=== PATIENT | male | born 1975 | race Caucasian/White ===

== ENCOUNTER → 2016-09-20 | Day surgery (SDC) | payer OTHER ==
[2016-09-13 13:56] VITALS: Ht 182.9 cm; Wt 99.1 kg
[~2016-09-20] VITALS: Ht 182.9 cm; Wt 99.1 kg
[~2016-09-20] MED LIST: AMIT25TA9 PO; GABA300C19 PO; LIDOCAINE HCL 1% MPF 5 ML VIAL ONE; MULT-506 PO; PRED20TA2 PO; SODIUM CHLORIDE 0.9% INJ 10 ML VIAL ONE
--- NOTE | 2016-09-20 13:33 | History & Physical Bridge - [place] ---
H&P Re-Evaluation Bridge Note: I have examined the patient, reviewed the History & Physical and in the interval since the performance of the History & Physical I have noted the following changes of clinical significance: No changes noted
[2016-09-20 13:58] VITALS: TEMP 37.3
--- NOTE | 2016-09-20 14:01 | Discharge Instructions ---
Discharge Instructions Visit Reason for Visit: Sacral Or Sacrococcygeal Radiculopathy Discharge Discharge Diagnosis / Problem: left leg pain Discharge Goals Goal(s): Decrease discomfort, Improve function Activity Recommendations Activity Limitations: resume your previous activity Anesthesia . Post Anesthesia Instructions: If you have had General Anesthesia or IV Sedation: * Do not drive today. * Resume driving when surgeon permits. * Do not make important decisions or sign legal documents today. * Call surgeon for: 1. Temperature elevations greater than 101 degrees F. 2. Uncontrollable pain. 3. Excessive bleeding. 4. Persistent nausea and vomiting. 5. Medication intolerance (nausea, vomiting or rash). * For nausea and vomiting use only clear liquids such as: tea, soda, bouillon until nausea subsides, then gradually increase diet as tolerated. * If you have any concerns or questions, call your surgeon's office. If physician is unavailable and it is an emergency, call 911 or go to the nearest emergency room. . Diet Recommendations Recommended Home Diet: resume previous diet Procedures Procedures Performed: CAUDAL EPIDURAL STEROID INJECTION. Pending Studies Studies pending at discharge: no Medical Emergencies . Who to Call and When: Medical Emergencies: If at any time you feel your situation is an emergency, please call 911 immediately. . Non-Emergent Contact Non-Emergency issues call your: Specialist . . "Provider Documentation" section prepared by Ludwig De Leon.
[2016-09-20 14:07] VITALS: BP 110/72; PULSE 95; O2SAT 95
--- NOTE | 2016-09-20 14:34 | OPERATIVE REPORT ---
DATE OF OPERATION: 09/20/2016 PREOPERATIVE DIAGNOSES: Failed back syndrome, left sacral radiculopathy, history of L5-S1 fusion with persistent left S1 radiculopathy. POSTOPERATIVE DIAGNOSES: Same. PROCEDURE: Caudal epidural steroid injection under fluoroscopic guidance. INDICATIONS: The patient is a 41-year-old white male who underwent an epidural injection and had good benefit following the injection for a number of weeks. A lot of that has worn off, but he still has about 20% overall improvement in radicular leg pain and presents today for second injection to try to stack the effects. PHYSICAL EXAMINATION: GENERAL: Pleasant male seated comfortably. MUSCULOSKELETAL: Lumbar paraspinal muscles were nontender. He had normal lower extremity strength with sensation and negative seated straight leg raises. CONSENT: Verbal and written consent was obtained from the patient. Risks and benefits were reviewed. Risks include but are not limited to epidural abscess, epidural hematoma, allergic reaction, dural puncture. The patient wishes to proceed. DESCRIPTION OF PROCEDURE: The patient was taken back to the special procedures room of the [facility] where he was maintained in a prone position. Backside was cleansed with Betadine x3 and a dry sterile dressing was applied. Fluoroscope was used to identify. The sacral hiatus and the overlying skin was anesthetized with 4 mL of lidocaine 1% with a 25 gauge 1.5-inch needle. A 25 gauge 3.5 inch spinal needle was then directed into the sacral hiatus and advanced upwards of an inch into the canal. He then underwent injection after negative aspiration of 40 mg of Depo-Medrol and 5 mL of preservative-free sodium chloride. Injection was tolerated, but was noted for an increased pressure in and around this area which was transient. DISPOSITION: 1. The patient is taken out into the discharge recovery area where he will be discharged home once discharge criteria have been met. 2. Follow up in the [facility] office in 2-4 weeks. I attest to the content of the Intraoperative Record and any orders documented therein. Any exceptio ns are noted below.
== END | disposition home or self-care (01) ==
LOC: X.SURG 12:51
PROVIDERS: ATTEND Physical Medicine & Rehabilitation
DX: M54.16 Radiculopathy, lumbar region (principal); M96.1 Postlaminectomy syndrome, not elsewhere classified; Z98.1 Arthrodesis status

== ENCOUNTER → 2016-11-21 | Day surgery (SDC) | payer OTHER ==
[2016-11-02 12:58] VITALS: Ht 182.9 cm; Wt 99.1 kg
[~2016-11-21] VITALS: Ht 182.9 cm; Wt 99.1 kg
[~2016-11-21] MED LIST changes: +BUPIVACAINE 0.25% 2.5MG/ML PF 10 ML VIAL INFIL ONE; +IOPAMIDOL INJ 61% 15 ML VIAL ONE; -SODIUM CHLORIDE 0.9% INJ 10 ML VIAL ONE
[2016-11-21 14:24] VITALS: TEMP 37.3
--- NOTE | 2016-11-21 14:29 | Discharge Instructions ---
Discharge Instructions Date of Service Nov 21, 2016. Visit Reason for Visit: Sacroiliitis Discharge Discharge Diagnosis / Problem: low back pain Discharge Goals Goal(s): Decrease discomfort, Improve function Activity Recommendations Activity Limitations: resume your previous activity Anesthesia . Post Anesthesia Instructions: If you have had General Anesthesia or IV Sedation: * Do not drive today. * Resume driving when surgeon permits. * Do not make important decisions or sign legal documents today. * Call surgeon for: 1. Temperature elevations greater than 101 degrees F. 2. Uncontrollable pain. 3. Excessive bleeding. 4. Persistent nausea and vomiting. 5. Medication intolerance (nausea, vomiting or rash). * For nausea and vomiting use only clear liquids such as: tea, soda, bouillon until nausea subsides, then gradually increase diet as tolerated. * If you have any concerns or questions, call your surgeon's office. If physician is unavailable and it is an emergency, call 911 or go to the nearest emergency room. . Diet Recommendations Recommended Home Diet: resume previous diet Procedures Procedures Performed: LEFT SACROPILIAC JOINT INJECTION Pending Studies Studies pending at discharge: no Medical Emergencies . Who to Call and When: Medical Emergencies: If at any time you feel your situation is an emergency, please call 911 immediately. . Non-Emergent Contact Non-Emergency issues call your: Specialist . . "Provider Documentation" section prepared by Ludwig De Leon.
[2016-11-21 14:36] VITALS: BP 125/88; PULSE 72; O2SAT 95
--- NOTE | 2016-11-21 15:58 | OPERATIVE REPORT ---
DATE OF OPERATION: 11/21/2016 PREOPERATIVE DIAGNOSES: Left sacroiliitis and history of a lumbar fusion. POSTOPERATIVE DIAGNOSES: Same. PROCEDURE: Left sacroiliac joint injection under fluoroscopic guidance. INDICATIONS: The patient is a 41-year-old white male who presents today with chronic low back pain. Pain is really localized to the sacroiliac joint. He has had responses to an epidural injection to deal with radicular pain. He reports that this pain will radiate towards the groin on the left side and in the sacroiliac region. He presents today for an SI joint injection that provide him with therapeutic relief. PHYSICAL EXAMINATION: Pleasant male seated comfortably, in no apparent distress. He has point tenderness to palpation of his left SI joint. Sciatic notch was minimally tender. Pain was worse with extension. Normal lower extremity strength. Negative seated straight leg raises. CONSENT: Verbal and written consent was obtained from the patient. Risks and benefits were reviewed. Risks include, but are not limited to abscess and allergic reaction. The patient wishes to proceed. DESCRIPTION OF PROCEDURE: The patient was taken back to the special procedures room of the [facility], where he was maintained in a prone position. Backside was cleansed with Betadine x3 and a dry sterile dressing was applied. Fluoroscope was used to identify the left SI joint. The overlying skin was anesthetized with 3 mL of lidocaine 1% with a 25-gauge 1.5-inch needle. A 25-gauge 3.5-inch spinal needle was then directed under fluoroscopic guidance into the joint. There was a give as it entered the joint. Isovue-300 contrast 0.25 mL demonstrated intraarticular uptake. He then underwent injection after negative aspiration of 40 mg of Depo-Medrol and 1.5 mL of bupivacaine 0.25%. Injection was well tolerated. DISPOSITION: 1. The patient is taken out into the discharge recovery area where he will be discharged home once discharge criteria have been met. 2. Follow up in the [facility] office in 2-4 weeks. I attest to the content of the Intraoperative Record and any orders documented therein. Any exceptio ns are noted below.
== END | disposition home or self-care (01) ==
LOC: X.SURG 13:13
PROVIDERS: ATTEND Physical Medicine & Rehabilitation
DX: M46.1 Sacroiliitis, not elsewhere classified (principal)

== ENCOUNTER → 2017-03-08 | Day surgery (SDC) | payer OTHER ==
[2017-02-05 07:36] VITALS: Ht 182.9 cm; Wt 99.1 kg
[~2017-03-08] VITALS: Ht 182.9 cm; Wt 99.1 kg
[~2017-03-08] MED LIST changes: +ATROPINE SULFATE 0.1 MG/ML 5ML SYR IV PRN; -BUPIVACAINE 0.25% 2.5MG/ML PF 10 ML VIAL INFIL ONE; +BUPIVACAINE 0.25% 2.5MG/ML PF 10 ML VIAL ONE; +EpHEDrine SULFATE INJ 50 MG/ML AMP IV PRN; +FENTANYL CITRATE INJ 50 MCG/1 ML 2 ML VIAL IV PRN; +LACTATED RINGER'S 1000ML 1,000 ML IV SCH; +LIDOCAINE HCL 2% 2 ML VIAL (20MG/ML) ONE; +MIDAZOLAM HCL 1 MG/ML 2ML VIAL ONE; +ONDANSETRON INJ 2 MG/ML 2 ML VIAL IV PRN; -PRED20TA2 PO; +PROMETHAZINE HCL INJ 6.25 MG in SODIUM CHLORIDE 0.9% 50ML 50 ML IV PRN; +PROPOFOL IV EMULSION 10 MG/ML 20 ML VIAL IV ONE; +[UNRECOGNIZED DRUG - REMARK] SCH
[2017-03-08] MEDS: LIDOCAINE MPF 1% INJ 30 ML SDV (L&D) INFIL ONE ×2 (10:32→11:03)
[2017-03-08 11:09] VITALS: TEMP 36.5
--- NOTE | 2017-03-08 11:17 | Discharge Instructions ---
Discharge Instructions Date of Service Mar 08, 2017. Visit Reason for Visit: Sacroiliitis Discharge Discharge Diagnosis / Problem: low back pain Discharge Goals Goal(s): Decrease discomfort, Improve function Activity Recommendations Activity Limitations: resume your previous activity Anesthesia . Post Anesthesia Instructions: If you have had General Anesthesia or IV Sedation: * Do not drive today. * Resume driving when surgeon permits. * Do not make important decisions or sign legal documents today. * Call surgeon for: 1. Temperature elevations greater than 101 degrees F. 2. Uncontrollable pain. 3. Excessive bleeding. 4. Persistent nausea and vomiting. 5. Medication intolerance (nausea, vomiting or rash). * For nausea and vomiting use only clear liquids such as: tea, soda, bouillon until nausea subsides, then gradually increase diet as tolerated. * If you have any concerns or questions, call your surgeon's office. If physician is unavailable and it is an emergency, call 911 or go to the nearest emergency room. . Diet Recommendations Recommended Home Diet: resume previous diet Procedures Procedures Performed: Left Cooled Sacroiliac Joint Denervaton Pending Studies Studies pending at discharge: no Medical Emergencies . Who to Call and When: Medical Emergencies: If at any time you feel your situation is an emergency, please call 911 immediately. . Non-Emergent Contact Non-Emergency issues call your: Specialist . . "Provider Documentation" section prepared by Ludwig De Leon. .
--- NOTE | 2017-03-08 11:25 | [facility] Operative Report ---
Operative Report Date of Service Mar 08, 2017. Operative Report DATE OF SURGERY: 03/08/17. DATE OF OPERATION: 03/08/2017 PREOPERATIVE DIAGNOSIS: Left sacroiliitis, history of a lumbar fusion L5 through S1. POSTOPERATIVE DIAGNOSIS: Same. PROCEDURE: Left sacroiliac joint cooled denervation procedure under fluoroscopic guidance. SURGEON: Dr. Ludwig De Leon. INDICATIONS: The patient is a 41-year-old white male who receives sacroiliac joint injections with some success. He presents today for a denervation procedure to provide him with relief of right-sided sacroiliac pain. PHYSICAL EXAMINATION: Pleasant male seated comfortably. He has point tenderness to palpation of his left SI joint. This is exacerbated with extension. He has normal motor and sensory examination with negative seated straight leg raises. CONSENT: Verbal and written consent was obtained from the patient and risks include but are not limited to abscess, allergic reaction, denervation. She wishes to proceed. PROCEDURE: The patient was taken back to the special procedures room of [facility]. He was maintained in a prone position. Backside was cleansed with Betadine x3 and a dry sterile dressing was applied. Fluoroscope was used to identify the right sacroiliac joint. It was actually done in an oblique fashion to deal with the artifact of the fusion. She had conscious sedation throughout the procedure and was comfortable, was able to converse freely. Overlying skin of this S1 foramen was done with 3 mL of 1% lidocaine. A denervation needle was then placed contacting the right sacral ala. A total of 8 sites were done. The right sacral ala, the superior lateral aspect of S1, the lateral aspect of S1, the inferior lateral aspect of S1, the superior lateral aspect of S2, the lateral aspect of S2, the lateral inferior aspect of S2 and the superior lateral aspect of S3. These were all denervated 2 minutes and 30 seconds with cooled denervation well tolerated. Additional anesthetization was done on the last 2 as they were too inferior to be reached with the single needle as it was changed out during denervation 7 and 8. DISPOSITION: 1. The patient is taken out into the discharge recovery area where she will be discharged home once discharge criteria have been met. 2. Follow up in the [facility] office in 2-4 weeks. I attest to the content of the Intraoperative Record and any orders documented therein. Any exceptions are noted below. I attest to the content of the Intraoperative Record and any orders documented therein. Any exceptions are noted below.
[2017-03-08 11:51] VITALS: BP 123/72; PULSE 68; O2SAT 96
--- NOTE | 2017-03-08 11:51 | Anesthesiology Progress Note ---
Anesthesia Post Op Note Date & Time Mar 08, 2017 at 11:51 Vital Signs Pain Intensity: 10 Vital Signs Past 12 Hours Date Time Temp Pulse Resp B/P (MAP) Pulse Ox O2 Delivery O2 Flow Rate FiO2 03/08/17 11:09 36.5 68 18 119/78 (92) 97 Room Air 03/08/17 09:42 36.8 86 16 126/76 (93) 98 Room Air Notes Mental Status: alert / awake / arousable, participated in evaluation Pt Amnestic to Procedure: Yes Nausea / Vomiting: adequately controlled Pain: adequately controlled Airway Patency, RR, SpO2: stable & adequate BP & HR: stable & adequate Hydration State: stable & adequate Anesthetic Complications: no major complications apparent
== END | disposition home or self-care (01) ==
LOC: X.SURG 09:07
PROVIDERS: ATTEND Physical Medicine & Rehabilitation
DX: M46.1 Sacroiliitis, not elsewhere classified (principal)

== ENCOUNTER → 2017-10-25 | Outpatient (CLI) | payer OTHER ==
[~2017-10-25] MED LIST changes: -ATROPINE SULFATE 0.1 MG/ML 5ML SYR IV PRN; -BUPIVACAINE 0.25% 2.5MG/ML PF 10 ML VIAL ONE; -EpHEDrine SULFATE INJ 50 MG/ML AMP IV PRN; -FENTANYL CITRATE INJ 50 MCG/1 ML 2 ML VIAL IV PRN; +GABA-1218 PO; -GABA300C19 PO; -IOPAMIDOL INJ 61% 15 ML VIAL ONE; -LACTATED RINGER'S 1000ML 1,000 ML IV SCH; -LIDOCAINE HCL 1% MPF 5 ML VIAL ONE; -LIDOCAINE HCL 2% 2 ML VIAL (20MG/ML) ONE; -MIDAZOLAM HCL 1 MG/ML 2ML VIAL ONE; -ONDANSETRON INJ 2 MG/ML 2 ML VIAL IV PRN; -PROMETHAZINE HCL INJ 6.25 MG in SODIUM CHLORIDE 0.9% 50ML 50 ML IV PRN; -PROPOFOL IV EMULSION 10 MG/ML 20 ML VIAL IV ONE; -[UNRECOGNIZED DRUG - REMARK] SCH
== END | disposition home or self-care (01) ==
LOC: C.RDSM 13:00
PROVIDERS: ATTEND Orthopaedic Surgery
DX: R52 Pain, unspecified (principal)

== ENCOUNTER → 2018-01-01 | Day surgery (SDC) | payer OTHER ==
[2017-11-07 13:16] VITALS: Ht 182.9 cm; Wt 95.5 kg
[~2018-01-01] VITALS: Ht 182.9 cm; Wt 95.5 kg
[~2018-01-01] MED LIST changes: +APPLE CIDER VINEGAR PO; +ATROPINE SULFATE 0.1 MG/ML 5ML SYR IV PRN; +BUPIVACAINE 0.25% 2.5MG/ML PF 10 ML VIAL ONE; +DULO-24 PO; +EpHEDrine SULFATE INJ 50 MG/ML AMP IV PRN; +FENTANYL CITRATE INJ 50 MCG/1 ML 2 ML VIAL IV PRN; +FENTANYL CITRATE INJ 50 MCG/1 ML 2 ML VIAL ONE; -GABA-1218 PO; +GABA100C13 PO; +GABA400C PO; +LACTATED RINGER'S 1000ML 1,000 ML IV SCH; +LIDOCAINE HCL 1% 20 ML VIAL ONE; +LIDOCAINE HCL 2% 2 ML VIAL (20MG/ML) ONE; +MIDAZOLAM HCL 1 MG/ML 2ML VIAL ONE; +ONDANSETRON INJ 2 MG/ML 2 ML VIAL IV PRN; +ONDANSETRON INJ 2 MG/ML 2 ML VIAL ONE; +PROPOFOL IV EMULSION 10 MG/ML 20 ML VIAL ONE
--- NOTE | 2018-01-01 08:53 | [facility] Post Operative Brief Note ---
Immediate Operative Summary Operative Date January 01, 2018. Pre-Operative Diagnosis Sacrolitis Post-Operative Diagnosis Same as pre-op Procedure(s) Performed Left Sacroiliac Joint Cooled Radio Frequency Ablation Surgeon Consulting Hr Professional Surgeon(s) None Estimated Blood Loss Zero Findings Consistent with Post-Op Diagnosis Specimens None Drains None Anesthesia Type MAC Complication(s) none Disposition Disposition:
--- NOTE | 2018-01-01 08:54 | Discharge Instructions ---
Discharge Instructions Date of Service January 01, 2018. Visit Reason for Visit: Sacroiliitis Discharge Discharge Diagnosis / Problem: low back pain Discharge Goals Goal(s): Decrease discomfort, Improve function Activity Recommendations Activity Limitations: resume your previous activity Anesthesia . Post Anesthesia Instructions: If you have had General Anesthesia or IV Sedation: * Do not drive today. * Resume driving when surgeon permits. * Do not make important decisions or sign legal documents today. * Call surgeon for: 1. Temperature elevations greater than 101 degrees F. 2. Uncontrollable pain. 3. Excessive bleeding. 4. Persistent nausea and vomiting. 5. Medication intolerance (nausea, vomiting or rash). * For nausea and vomiting use only clear liquids such as: tea, soda, bouillon until nausea subsides, then gradually increase diet as tolerated. * If you have any concerns or questions, call your surgeon's office. If physician is unavailable and it is an emergency, call 911 or go to the nearest emergency room. . Diet Recommendations Recommended Home Diet: resume previous diet Procedures Procedures Performed: Left Sacroiliac Joint Cooled Radio Frequency Ablation Pending Studies Studies pending at discharge: no Medical Emergencies . Who to Call and When: Medical Emergencies: If at any time you feel your situation is an emergency, please call 911 immediately. . Non-Emergent Contact Non-Emergency issues call your: Specialist . . "Provider Documentation" section prepared by Ludwig De Leon. .
[2018-01-01 09:02] VITALS: TEMP 36.9
--- NOTE | 2018-01-01 09:17 | Anesthesia Progress Nt - [facility] ---
Anesthesia Post Op Note Date & Time January 01, 2018 at 09:15 Vital Signs Pain Intensity: 0 Vital Signs Past 12 Hours Date Time Temp Pulse Resp B/P (MAP) Pulse Ox O2 Delivery O2 Flow Rate FiO2 01/01/18 09:02 36.9 68 16 130/87 (101) 94 Room Air 01/01/18 07:00 36.8 85 16 120/86 (97) 95 Room Air Notes Mental Status: alert / awake / arousable, participated in evaluation Pt Amnestic to Procedure: Yes Nausea / Vomiting: adequately controlled Pain: adequately controlled Airway Patency, RR, SpO2: stable & adequate BP & HR: stable & adequate Hydration State: stable & adequate Anesthetic Complications: no major complications apparent I did not think this patient had a concerning story for allergy to fentanyl and I discussed the risks of giving him some fentanyl with the option to treat a rash if he did have a reaction. He agreed and we did use fentanyl. The patient had no reaction. I suspect that his rash was due to a different medication or surgical prep used during his spine surgery. He can safely have fentanyl removed from his allergy list.
[2018-01-01 09:37] VITALS: BP 119/74; PULSE 73; O2SAT 96
--- NOTE | 2018-01-01 10:46 | OPERATIVE REPORT ---
DATE OF OPERATION: 01/01/2018 PREOPERATIVE DIAGNOSIS: History of an L5-S1 fusion with left sacroiliitis. POSTOPERATIVE DIAGNOSIS: History of an L5-S1 fusion with left sacroiliitis. PROCEDURE: Left sacroiliac cooled radiofrequency ablation. INDICATIONS: Patient is a 42-year-old white male who has had an ablation in the past and it helped with his symptoms considerably. This was done 8 months ago and the pain is starting to return and he is requesting another ablation. PHYSICAL EXAMINATION: Pleasant male seated comfortably. He has point tenderness to palpation of left SI joint, positive reproduction of pain with extension into the SI joint. Positive modified Melanie maneuver. CONSENT: Written and verbal consent was obtained from the patient. Risks and benefits were reviewed. Risks include but are not limited to abscess, nerve denervation, allergic reaction, and wishes to proceed. PROCEDURE: Patient was taken back into OR [address] [place] [address] where he was maintained in a prone position. He had conscious sedation throughout the procedure. Backside was cleansed with Betadine x3 and a dry sterile dressing was applied. Fluoroscope was used to identify the S1 foramen and this area overlying skin was anesthetized with 5 mL of lidocaine 1% with a 25 gauge 1.5-inch needle lateral to this. He then underwent placement in 8 separate spots for denervation at 60 degrees 2 minutes and 30 seconds, first being the left sacral ala. Next, the superior lateral S1 foramen region. Next, the lateral S1 foramen region. Next, the lateral inferior S1 foramen region and lastly, the superior S2 foraminal region. An additional 4 mL of lidocaine was used to anesthetize the lateral aspect of S2 and this was denervated on the lateral aspect of S2 and inferior lateral aspect of S2 and superior lateral aspect of S3. The procedure was well tolerated. DISPOSITION: 1. He was taken back into the discharge recovery area where he will be discharged home once discharge criteria are met. 2. Follow up in the [facility] office in 4 weeks' time. I attest to the content of the Intraoperative Record and any orders documented therein. Any exception s are noted below.
== END | disposition home or self-care (01) ==
LOC: X.SURG 06:53
PROVIDERS: ATTEND Physical Medicine & Rehabilitation
DX: M46.1 Sacroiliitis, not elsewhere classified (principal); J45.909 Unspecified asthma, uncomplicated; Z79.899 Other long term (current) drug therapy; Z98.890 Other specified postprocedural states; F17.290 Nicotine dependence, other tobacco product, uncomplicated